=== PATIENT | male | born 1935 | race Caucasian/White ===

== ENCOUNTER → 2021-10-13 09:58 | Outpatient (CLI) | payer MEDICARE, SELFPAY ==
--- NOTE | 2021-10-13 | DI.CT.S_ITS ---
PROCEDURE: CT LUMBAR SPINE WO CON INDICATIONS: Spinal stenosis, lumbar region TECHNIQUE: Noncontrast 3 mm thick sections acquired from the T12 level to the sacrum. Sagittal and coronal reformats were constructed. For radiation dose reduction, the following was used: automated exposure control. COMPARISON: None. FINDINGS: Image quality: Excellent. Bones: There is normal bony alignment. No acute vertebral body compression fractures. No suspicious lytic or blastic bony lesions. No pars defects. Is been incidental resection of the L2, L3 and L4 spinous processes without evidence of interbody are posterolateral fusion T12-L1: Disc space narrowing and circumferential disc bulge without central stenosis. Moderate bilateral foraminal stenosis. L1-L2: Disc space narrowing with circumferential disc bulge and hypertrophic facet joints results in mild central stenosis. Moderate left and mild right foraminal stenosis. L2-L3: Disc space narrowing with vacuum disc phenomena present. Hypertrophic facet joints and ligamentum flavum laxity results in moderate to severe central stenosis. Moderate bilateral foraminal stenosis L3-L4: Disc space narrowing with circumferential disc bulge and hypertrophic facet joints results in moderate central stenosis. Moderate bilateral foraminal stenosis L4-L5: Disc space narrowing with circumferential disc bulge and hypertrophic facet joints results in moderate central stenosis. Moderate bilateral foraminal stenosis greater on the right. L5-S1: Disc space narrowing present. No central stenosis. Hypertrophic facet joints associated with mild left and moderate right foraminal stenosis. Soft tissues: No retroperitoneal masses or hematomas. Densely calcified abdominal aorta shows a small infrarenal abdominal aortic aneurysm measuring 2.5 x 3.0 cm. . IMPRESSION: Multilevel degenerative disc disease and arthropathy results in varying degrees of central and foraminal stenosis including moderate to severe L2-3 and moderate L3-4, L4-5 central stenosis Approved by: Angel Alonzo M.D. on 10/13/2021 at 17:10
== END ==
PROVIDERS: Referring Provider Orthopaedic Surgery Orthopaedic Surgery of the Spine; Visit Provider Orthopaedic Surgery Orthopaedic Surgery of the Spine
DX: M51.36 Other intervertebral disc degeneration, lumbar region (principal); M48.061 Spinal stenosis, lumbar region without neurogenic claudication; M48.07 Spinal stenosis, lumbosacral region; M47.816 Spondylosis without myelopathy or radiculopathy, lumbar region; M47.817 Spondylosis without myelopathy or radiculopathy, lumbosacral region; I71.4 Abdominal aortic aneurysm, without rupture
CPT/HCPCS: 72131

== ENCOUNTER → 2022-01-10 12:43 | Outpatient (CLI) | payer MEDICARE, SELFPAY ==
[2022-01-10 13:53] LABS: COVID19 -Nasal RAPID Negative (Negative)
== END ==
PROVIDERS: Referring Provider Orthopaedic Surgery Orthopaedic Surgery of the Spine; Visit Provider Orthopaedic Surgery Orthopaedic Surgery of the Spine
DX: Z20.822 Contact with and (suspected) exposure to COVID-19 (principal)
CPT/HCPCS: 87635; C9803

== ENCOUNTER 2022-01-13 06:33 | Day surgery (SDC) | payer MEDICARE, SELFPAY ==
[2022-01-11 08:07] VITALS: BMI 20.9
[2022-01-13 07:07] VITALS: BP 168/76; PULSE 59; RESP 16; TEMP 36.4; O2SAT 98; BMI 20.9
--- NOTE | 2022-01-13 07:42 | PM.PREOP ---
Pre-operative Note COVID-19 COVID-19 status: Negative Result date/Date tested (Pos, Neg/Pending): 01/12/22 Criteria for continued procedure: Expected advancement of disease process, Possibility delay results in more complex future surgery or treatment, Increased loss of function, Continuing or worsening of significant or severe pain, Deterioration of the patient's condition or overall health and Delay expected to result in less-positive ultimate med/surg outcome Interval Note History & Physical reviewed/Exam performed by Physician: Yes Changes to H&P: No
--- NOTE | 2022-01-13 09:09 | SUR.PREOP ---
Due to arrythmia , pt. case cancelled. pt. given ekg and and instructions to follow up with [facility]. dr. Ponce aware and pt. advised to re start plavix and asa today .
== END 2022-01-13 09:23 | disposition home or self-care (01) ==
LOC: AC 12:10 → OR 14:39
PROVIDERS: Referring Provider Orthopaedic Surgery Orthopaedic Surgery of the Spine; Visit Provider Orthopaedic Surgery Orthopaedic Surgery of the Spine
DX: M48.062 Spinal stenosis, lumbar region with neurogenic claudication (principal); Z53.8 Procedure and treatment not carried out for other reasons
CPT/HCPCS: 93005; 93010; J2704; J3010

== ENCOUNTER → 2022-04-01 10:24 | Outpatient (CLI) | payer MEDICARE, SELFPAY ==
--- NOTE | 2022-04-01 | DI.ECHO.S_ITS ---
[facility] +---------+ [facility] +---------+ : : [address] [place] : : : : [id number] : : : : Phone: [phone]+ Echocardiogram Report + + :Name: MARY MAN Study Date: 04/01/2022 Height: 72 in : :[facility] ReadingLocation: Weight: 130 lb : : Gender: Male BSA: 1.8 m2 : :: 1935 Age: 86 yrs BP: 163/86 mmHg: :Reason For Study: ATHEROSCLEROTIC HEART DISEASE : :Ordering Physician: ALBERTA, : :TONY Performed By: Rochelle Watkins : :Referring: TONY PINZON : + + Interpretation Summary The ejection fraction is estimated to be 50-55%. There is mild concentric left ventricular hypertrophy. Mild to moderate hypokinesis of the inferior and inferolateral sorto from mid to distal. Grade II diastolic dysfunction. The right ventricular systolic function is normal. The right ventricular systolic pressure is estimated to be at least 45 mmHg based on an estimated right atrial pressure of 3 mm Hg. The left atrium is severely dilated. The right atrium is severely dilated. There is moderate aortic valve sclerosis, without significant stenosis. Procedure: A two-dimensional transthoracic echocardiogram with color flow and Doppler was performed. The study quality was technically adequate. There is no prior echocardiogram noted for this patient. The patient was in sinus rhythm with heart rates between 55-70 bpm during the exam. Left Ventricle: The left ventricle is normal in size. There is mild concentric left ventricular hypertrophy. The ejection fraction is estimated to be 50-55%. Mild to moderate hypokinesis of the inferior and inferolateral sorto from mid to distal. Grade II diastolic dysfunction. Right Ventricle: The right ventricle is borderline dilated. The right ventricular systolic function is normal. Atria: The left atrium is severely dilated. The right atrium is severely dilated. There is no Doppler evidence for an interatrial shunt. Mitral Valve: The mitral valve leaflets appear mildly thickened, but open well. There is mild mitral annular calcification. There is mild mitral regurgitation. Aortic Valve: The aortic valve is trileaflet. There is discrete nodular thickening of the right coronary cusp. There is moderate aortic valve sclerosis. The aortic valve is moderately calcified. There is no aortic valve stenosis. No aortic regurgitation is present. Tricuspid Valve: The tricuspid valve leaflets are thin and pliable. There is trace tricuspid regurgitation. The right ventricular systolic pressure is estimated to be at least 45 mmHg based on an estimated right atrial pressure of 3 mm Hg. Pulmonic Valve: The pulmonic valve leaflets are thin and pliable; valve motion is normal. There is mild to moderate pulmonic regurgitation. Great Vessels: The aortic root is normal size. The ascending aorta could not be visualized. The IVC is of normal diameter and collapses greater than 50% with a sniff. This suggests a low right atrial pressure of 3 mm Hg. Pericardium/ Pleura There is no pericardial effusion. There is no pleural effusion. MMode/2D Measurements & Calculations LVIDd: 5.3 cm LVOT diam: 2.4 cm LVIDs: 4.4 cm Ao root diam: 3.4 cm FS: 17.1 % Ao Arch Diam (Prox Trans): 2.7 cm IVSd: 0.99 cm LVPWd: 1.1 cm LV tavera. diameter/BSA (cm/m^2): 3.0 LV sys. diameter/BSA (cm/m^2): 2.5 LA A2 area: 38.5 cm2 RA long axis: 6.8 cm LA A4 area: 34.2 cm2 RA area: 28.1 cm2 LA length (vol): 6.5 cm RA vol: 99.2 ml LA vol: 170.9 ml RA : 55.9 ml/m2 LA vol index: 96.3 ml/m2 IVC diam: 1.8 cm RVD1 (basal): 4.1 cm RVD2 (mid): 3.7 cm TAPSE: 1.7 cm Doppler Measurements & Calculations Ao V2 max: 186.8 cm/sec LVOT Max Price: 113.4 cm/sec Ao V2 mean: 144.6 cm/sec LV V1 max P.1 mmHg Ao max P.0 mmHg LV V1 VTI: 26.2 cm Ao mean P.0 mmHg JUDITH(I,D): 2.5 cm2 Ao V2 VTI: 46.2 cm JUDTIH(V,D): 2.7 cm2 sev ratio: 0.57 JUDITH indexed to BSA (cm^2/m^2): 1.4 MV E max price: 97.3 cm/sec TR max price: 324.3 cm/sec MV A max price: 76.3 cm/sec TR max P.1 mmHg MV E/A: 1.3 PA V2 max: 91.8 cm/sec Med Peak E' Price: 3.1 cm/sec PA V2 mean: 67.5 cm/sec E/E' med: 31.6 PA mean P.0 mmHg Lat Peak E' Price: 8.7 cm/sec PA pr(Accel): 19.1 mmHg E/E' lat: 11.2 E/e' average: 21.4 MV dec time: 0.21 sec SV(LVOT): 115.8 ml Reading Physician:ALETHA
== END ==
PROVIDERS: Referring Provider Internal Medicine Cardiovascular Disease; Visit Provider Internal Medicine Cardiovascular Disease
DX: I25.10 Atherosclerotic heart disease of native coronary artery without angina pectoris (principal); R94.31 Abnormal electrocardiogram [ECG] [EKG]; I08.0 Rheumatic disorders of both mitral and aortic valves
CPT/HCPCS: 93306